=== PATIENT | male | born 1985 | race Caucasian/White ===

== ENCOUNTER 2018-10-10 11:47 | Emergency (ER) | payer OTHER ==
[~2018-10-10] VITALS: Ht 167.6 cm; Wt 106.6 kg
[2018-10-10 17:54] VITALS: BP 132/82
== END 2018-10-10 17:54 | disposition home or self-care (01) ==
LOC: ED 11:47
DX: S92.044A Nondisplaced other fracture of tuberosity of right calcaneus, initial encounter for closed fracture (principal); S90.02XA Contusion of left ankle, initial encounter; M54.5 Low back pain; M54.6 Pain in thoracic spine; W17.89XA Other fall from one level to another, initial encounter; Y93.89 Activity, other specified; Y92.89 Other specified places as the place of occurrence of the external cause; Y99.8 Other external cause status